=== PATIENT | female | born 1940 | race Caucasian/White ===

== ENCOUNTER 2016-11-23 06:45 | Day surgery (SDC) | payer MEDICARE ==
[~2016-11-23] VITALS: Ht 160 cm; Wt 95.3 kg
[~2016-11-23 06:45] MED LIST: ABILIFY10 MG PO; AMLODIPINE5 MG PO; AVAPRO300 MG PO; CELEBREX200 MG PO; CELEXA40 MG PO; CYCLOBENZAPRINE10 MG PO; JANUVIA100 MG PO; LOMOTIL2.5 MG PO; LORAZEPAM1 MG PO; LOSARTAN POTASS50 MG PO; LOVASTATIN10 M1 PO; MELOXICAM7.5 MG PO; OMEPRAZOLE20 MG PO; ONDANSETRON4 MG PO; PRAVASTATIN80 MG PO; SUCRALFATE1 GM PO; TYLENOL # 31 TA1 PO; ULTRAM50 M1 PO; [UNRECOGNIZED DRUG - OTHER] EX
[2016-11-23 11:25] VITALS: BP 126/68
== END 2016-11-23 09:10 | disposition home or self-care (01) ==
LOC: ORM 06:45
PROVIDERS: ATTEND Anesthesiology Pain Medicine
PROC: 3E0U33Z Introduction of Anti-inflammatory into Joints, Percutaneous Approach (ICD-10-PCS; principal; 2016-11-23)
PROC: 3E0U3BZ Introduction of Anesthetic Agent into Joints, Percutaneous Approach (ICD-10-PCS; 2016-11-23)
DX: M46.1 Sacroiliitis, not elsewhere classified (principal); M54.5 Low back pain

== ENCOUNTER 2017-09-13 07:02 | Day surgery (SDC) | payer MEDICARE ==
[~2017-09-13] VITALS: Ht 160 cm; Wt 95.3 kg
[~2017-09-13 07:02] MED LIST changes: +PRAVASTATIN SOD80 MG PO
[2017-09-13 08:56] VITALS: BP 129/63
== END 2017-09-13 09:20 | disposition home or self-care (01) ==
LOC: ORM 07:02
PROVIDERS: ATTEND Anesthesiology Pain Medicine
PROC: 3E0U33Z Introduction of Anti-inflammatory into Joints, Percutaneous Approach (ICD-10-PCS; principal; 2017-09-13)
PROC: 3E0U3BZ Introduction of Anesthetic Agent into Joints, Percutaneous Approach (ICD-10-PCS; 2017-09-13)
DX: M70.62 Trochanteric bursitis, left hip (principal); M70.72 Other bursitis of hip, left hip; M25.552 Pain in left hip

== ENCOUNTER → 2017-09-27 | Day surgery (SDC) | payer MEDICARE | END | disposition home or self-care (01) | LOC: ORM 06:28 | PROVIDERS: ATTEND Anesthesiology Pain Medicine | DX: M70.62 Trochanteric bursitis, left hip (principal); M70.72 Other bursitis of hip, left hip; Z53.8 Procedure and treatment not carried out for other reasons ==

== ENCOUNTER 2017-10-04 06:22 | Day surgery (SDC) | payer MEDICARE ==
[~2017-10-04] VITALS: Ht 160 cm; Wt 99.3 kg
[2017-10-04 13:32] VITALS: BP 119/59
== END 2017-10-04 08:50 | disposition home or self-care (01) ==
LOC: ORM 06:22
PROVIDERS: ATTEND Anesthesiology Pain Medicine
PROC: 3E0U33Z Introduction of Anti-inflammatory into Joints, Percutaneous Approach (ICD-10-PCS; principal; 2017-10-04)
PROC: 3E0U3BZ Introduction of Anesthetic Agent into Joints, Percutaneous Approach (ICD-10-PCS; 2017-10-04)
DX: M70.62 Trochanteric bursitis, left hip (principal); M70.72 Other bursitis of hip, left hip; M25.552 Pain in left hip

== ENCOUNTER 2018-11-09 10:37 | Emergency (ER) | payer MEDICARE ==
[~2018-11-09] VITALS: Ht 160 cm; Wt 98.7 kg
[2018-11-09 11:21] LABS: HEMATOCRIT 45.7 % (37.0-47.0); HEMOGLOBIN 14.8 g/dl (12.0-16.0); IMMATURE GRANULOCYTES 0.4 % (0.0-5.0); MEAN CELL VOLUME 91.2 fL CALC (80.0-100.0); MEAN CORPUSCULAR HGB 29.5 pG CALC (26.0-32.0); MEAN CORPUSCULAR HGB CONC 32.4 g/L CALC (32.0-36.0); NEUT# 5.43 thou/uL (2.00-7.15); RED BLOOD COUNT 5.01 mill/uL (4.20-5.60); RED CELL DISTRI WIDTH 13.2 % (11.5-15.5)
[2018-11-09 11:34] LABS: ALBUMIN 4.5 g/dL (3.2-5.0); ALKALINE PHOSPHATASE 121 u/l (38-126); ANION GAP 14 (6-22 (CALC)); BILIRUBIN, TOTAL 0.5 mg/dL (0.0-1.4); BUN 17 mg/dL (8-23); BUN/CREATININE RATIO 21 (12-20 (CALC)); CARBON DIOXIDE 26 mmol/l (22-30); CHLORIDE 104 mmol/l (95-108); CREATININE 0.8 mg/dL (0.5-1.0); GFR > 60 ML/MIN (>=60 (CALC)); GFR FOR AFR.AMER. > 60 ML/MIN (>=60 (CALC)); POTASSIUM 4.2 mmol/l (3.5-5.1); SGOT/AST 27 u/l (9-36); SODIUM 140 mmol/l (137-146)
[2018-11-09 11:47] LABS: MYOGLOBIN 217 ng/mL (0 - 62)
[2018-11-09] MEDS ORDERED: ZPAK PO (13:00)
[2018-11-09] MEDS ORDERED: ROBITUSSIN AC10 ML PO (13:00)
[2018-11-09 13:45] VITALS: BP 116/54
== END 2018-11-09 13:45 | disposition home or self-care (01) ==
LOC: ED 10:37
PROVIDERS: Emergency Medicine
DX: J06.9 Acute upper respiratory infection, unspecified (principal); E11.9 Type 2 diabetes mellitus without complications; I10 Essential (primary) hypertension; R06.02 Shortness of breath
CPT/HCPCS: Q9967